=== PATIENT | female | born 1945 | race Caucasian/White ===

== ENCOUNTER 2018-08-19 19:50 | Emergency (ER) | payer MEDICARE, OTHER ==
[2018-08-19] MEDS ORDERED: Ketorolac Tromethamine 30 MG/ML VIAL ONE (21:51)
[2018-08-19] MEDS ORDERED: Morphine 4 MG/ML VIAL ONE ×2 (21:51→22:53)
[2018-08-19] MEDS ORDERED: Ondansetron PF 4 MG/2 ML Vial ONE (23:27)
== END 2018-08-20 00:07 | disposition home or self-care (01) ==
LOC: ERS 19:50
DX: B34.9 Viral infection, unspecified (principal); M25.552 Pain in left hip; F32.9 Major depressive disorder, single episode, unspecified; F17.210 Nicotine dependence, cigarettes, uncomplicated; I10 Essential (primary) hypertension; Z79.82 Long term (current) use of aspirin; Z79.899 Other long term (current) drug therapy; Z86.73 Personal history of transient ischemic attack (TIA), and cerebral infarction without residual deficits
CPT/HCPCS: 96374; 96375; J1885; J2270; J2405

== ENCOUNTER 2019-09-19 17:28 | Observation (INO) | payer MEDICARE ==
[2019-09-19 18:23] LABS: #Basophils 0.1 thou/uL (0.0-0.2); #Lymphocytes 1.8 thou/uL (1.20-3.40); #Monocytes 1.3 thou/uL (0.11-0.59); #Neutrophils 11.4 thou/uL (1.40-6.50); %Basophils 0.6 % (0.0-1.0); %Eosinophils 0.3 % (0.0-10.0); Hemoglobin 15.8 g/dL (12.0-16.0); Mean Corpuscular HGB CONC 34.7 g/dL (32.0-36.0); Mean Corpuscular Hemoglobin 31.1 pg (27.0-31.0); Mean Corpuscular Volume 89.6 fL (78.0-98.0); Mean Platelet Volume 6.3 fL (7.4-10.4); Platelet Count 267 thou/uL (130-400); RBC Distribution Width 11.9 % (11.5-14.5); Red Blood Cell (RBC) Count 5.08 mill/uL (4.20-5.40); White Blood Cell (WBC) Count 14.6 thou/uL (4.8-10.8)
--- NOTE | 2019-09-19 18:42 | ULT ---
RIGHT UPPER QUADRANT ULTRASOUND CLINICAL HISTORY: Right upper quadrant pain. COMPARISON: CT the abdomen and pelvis with contrast dated September 19, 2019 FINDINGS: Liver:Normal echotexture without focal mass. Intrahepatic bile ducts: No intrahepatic or extrahepatic biliary dilation.; Common bile duct: 3.2 mm. Gallbladder: There is a small stone within the gallbladder. No gallbladder wall thickening or pericho lecystic fluid is evident. Matt's sign:None Main portal vein:Patent with hepatopedal flow. Pancreas:Obscured Right kidney: Right kidney measures 10.9 x 4.0 x 5.4 cm. No focal renal lesion or hydronephrosis. Additional findings: None. IMPRESSION: Cholelithiasis without sonographic evidence of acute calculus cholecystitis.
[2019-09-19 18:49] LABS: ALT (SGPT) 10 U/L (8-55); AST (SGOT) 14 U/L (5-34); Albumin 3.8 g/dL (3.4-4.8); Alkaline Phosphatase 88 U/L (40-110); Anion Gap 15 mmol/L (10-20); BUN (Urea Nitrogen) 12 mg/dL (9.8-20.1); Bilirubin, Total 0.6 mg/dL (0.2-1.2); CK (CPK) 52 U/L (29-168); Calc. Creatinine Clearance 0 mL/min (70-130); Calcium 8.6 mg/dL (7.8-10.44); Carbon Dioxide 22 mmol/L (23-31); Chloride 96 mmol/L (98-107); Estimated GFR-MDRD 57; Globulin 3.3 g/dL (2.4-3.5); Glucose 107 mg/dL (83-110); Lipase 29 U/L (8-78); Potassium 3.9 mmol/L (3.5-5.1); Protein, Total 7.1 g/dL (6.0-8.3); Sodium 129 mmol/L (136-145)
[2019-09-19] MEDS ORDERED: Ondansetron PF 4 MG/2 ML Vial ONE (19:18)
--- NOTE | 2019-09-19 19:52 | PDOC.FPRHP ---
- History of Present Illness Chief Complaint: abdominal pain, n/v History of Present Illness: Patient is a 74F with PMHX of HTN, prior TIA, and recent hospitalization for hyponatremia that presented to the ED as a transfer from [place] for abdominal pain. Per patient the abdominal pain began as mid-epigastric 2 days ago. She denies that it began after eating or after a particular activity. She cannot recall exactly what she was doing at the time of onset. She reports that she did feel some indigestion and took Tums which seemed to alleviate some of her pain. She states that at this time she is more bothered by her nausea and vomiting, as she has had this ongoing for the last 2 days and has not been able to tolerate PO intake. She states that since last night she has been dry-heaving. Denies that this has ever happened to her before. Denies previous issues with her gallbladder or a previous diagnosis of pancreatitis. Endorses chills and subjective fever this morning. She does not drink. Denies hematemesis. Denies cp , sob, hematochezia, melena, hematuria. PCP: Dr. Bolaños ED Course: zofran, phenergan, toradol, 1L NS, 150ml/hr NS - Allergies/Adverse Reactions Allergies Allergy/AdvReac Type Severity Reaction Status Date / Time cefepime Allergy Verified 09/19/19 22:47 cephalexin monohydrate Allergy Verified 09/19/19 22:47 [From Keflex] codeine Allergy Verified 09/19/19 22:47 hydrocodone bitartrate Allergy Verified 09/19/19 22:47 [From Vicodin] Sulfa (Sulfonamide Allergy Verified 09/19/19 22:47 Antibiotics) - Home Medications Medication Instructions Recorded Confirmed Type Aspirin 325 mg PO DAILY 09/20/19 09/20/19 History Estradiol [Estrace] 1 mg PO DAILY 09/20/19 09/20/19 History Lisinopril 10 mg PO DAILY 09/20/19 09/20/19 History Metoprolol Tartrate 25 mg PO DAILY 09/20/19 09/20/19 History Mirtazapine [Remeron] 15 mg PO HS 09/20/19 09/20/19 History - History PMHx: HTN, prior TIA with no residual deficits, recent hospitalization for hyponatremia PSHx: partial thyroidectomy, neck sx, back sx, hysterectomy FHx: no family hx of cholecystitis or pancreatitis Social: 1/2ppd x 30 yrs smoking hx, no etoh use, no drug use - Review of Systems General: reports: fever/chills (chills, subjective fever this morning) Eyes: denies: eye pain, vision changes ENT: denies: nasal congestion, rhinorrhea Respiratory: reports: cough (dry, intermittent). denies: shortness of breath Cardiovascular: denies: chest pain, edema Gastrointestinal: reports: nausea, vomiting, abdominal pain. denies: diarrhea, GI bleeding Genitourinary: denies: incontinence, polyuria Skin: denies: rashes, jaundice Musculoskeletal: denies: pain, stiffness Neurological: denies: syncope, seizure Psychological: denies: anxiety, depression - Vital signs BP: [153/80] HR: [71] RR: [13] Tmax: [99F] Pox: [98]% on [RA] Wt: [84.65kg] - Physical Exam Constitutional: awake, alert and oriented, well developed HEENT: normocephalic and atraumatic, EOMI, MMM Neck: supple, FROM Chest: no-tender to palpation, no lesions Heart: RRR, normal S1/S2 Lungs: CTAB, no respiratory distress Abdomen: soft, non-tender, bowel sounds present, other (no RUQ tenderness or ttp of McBurney's point) Musculoskeletal: normal structure, normal tone, ROM grossly normal Neurological: no focal deficit, normal sensation Skin: no rash/lesions, good turgor Heme/Lymphatic: no unusual bruising or bleeding, no purpura Psychiatric: normal mood and affect, good judgment and insight FMR H&P: Results - Labs Result Diagrams: 09/20/19 05:30 09/20/19 05:30 Lab results: WBC 14.6 thou/uL (4.8-10.8) H 09/19/19 18:14 Hgb 15.8 g/dL (12.0-16.0) 09/19/19 18:14 Hct 45.5 % (36.0-47.0) 09/19/19 18:14 MCV 89.6 fL (78.0-98.0) 09/19/19 18:14 Plt Count 267 thou/uL (130-400) 09/19/19 18:14 Neutrophils % 78.0 % (42.0-75.0) H 09/19/19 18:14 Sodium 129 mmol/L (136-145) L 09/19/19 18:14 Potassium 3.9 mmol/L (3.5-5.1) 09/19/19 18:14 Chloride 96 mmol/L (98-107) L 09/19/19 18:14 Carbon Dioxide 22 mmol/L (23-31) L 09/19/19 18:14 BUN 12 mg/dL (9.8-20.1) 09/19/19 18:14 Creatinine 0.96 mg/dL (0.6-1.1) 09/19/19 18:14 Glucose 107 mg/dL (83-110) 09/19/19 18:14 Lactic Acid 1.2 mmol/L (0.5-2.2) 09/19/19 18:14 Calcium 8.6 mg/dL (7.8-10.44) 09/19/19 18:14 Total Bilirubin 0.6 mg/dL (0.2-1.2) 09/19/19 18:14 AST 14 U/L (5-34) 09/19/19 18:14 ALT 10 U/L (8-55) 09/19/19 18:14 Alkaline Phosphatase 88 U/L (40-110) 09/19/19 18:14 Creatine Kinase 52 U/L (29-168) 09/19/19 18:14 Serum Total Protein 7.1 g/dL (6.0-8.3) 09/19/19 18:14 Albumin 3.8 g/dL (3.4-4.8) 09/19/19 18:14 Lipase 29 U/L (8-78) 09/19/19 18:14 - Radiology Interpretation US - abdomen Status: report reviewed by me (Cholelithaisis, no cholecystitis) FMR H&P: A/P - Problem List (1) Cholelithiasis Current Visit: Yes Status: Acute Code(s): K80.20 - CALCULUS OF GALLBLADDER W /O CHOLECYSTITIS W/O OBSTRUCTION (2) Hypertension Current Visit: No Status: Chronic Code(s): I10 - ESSENTIAL (PRIMARY) HYPERTENSION (3) Hyponatremia Current Visit: No Status: Chronic Code(s): E87.1 - HYPO-OSMOLALITY AND HYPONATREMIA (4) Leukocytosis Current Visit: No Status: Acute Code(s): D72.829 - ELEVATED WHITE BLOOD CELL COUNT, UNSPECIFIED (5) Depression Current Visit: Yes Status: Chronic Code(s): F32.9 - MAJOR DEPRESSIVE DISORDER, SINGLE EPISODE, UNSPECIFIED (6) Nausea and vomiting Current Visit: No Status: Resolved Code(s): R11.2 - NAUSEA WITH VOMITING, UNSPECIFIED - Plan Patient is a 74F with PMHX of HTN, prior TIA, and recent hospitalization for hyponatremia that is admitted with intractable nausea and vomiting. #Intractable Nausea and vomiting #Cholelithiasis -unclear etiology -RUQ US demonstrated cholelithiasis without cholecystitis -n/v accompanied by abdominal pain -will get HIDA scan in am to assess functionality of gallbladder -h pylori fecal antigen and FOBT to assess for possible ulcer -protonix BID -IV zofran and IV phenergan -Clear liquid diet #Recent hyponatremia -sodium 129, improved from last hospitalization -NS for IVF and will continue to monitor on am labs #Leukocytosis -WBC 14.6 -likely reactive -vss at this time, will continue to monitor #HTN -continue home meds #Depression -continue home meds DVT ppx:SCD Diet: Clears Dispo: obs for IV hydration and IV medication for intractable n/v; HIDA scan in am Code: Full PCP: Mami FMR H&P: Upper Level - Pertinent history 74 yo F here as a transfer from [place] for intractable n/v and abdominal pain. She states that she has had significant abdominal pain across her upper abdomen that has been associated with n/v for the past week. She denies association with eating. She denies blood in stool or vomit. She complains of chills, however has had no fever at home or documented in the ED. She was admitted to the [facility] about 1 month ago for hyponatremia. Imaging here shows cholelithiasis, without cholecystitis. She was given protonix, Phenergan, Zofran, and toradol with improvement of symptoms, however now she complains of recurrent pain. PMHx HTN Hx of TIA MDD Surgical Hx Hysterectomy Spinal surgery NOS Social Hx 30+ pack year smoking hx No drugs or etoh - Pertinent findings See technology risk intern note for full ROS, PE, vitals, and labs ROS General Complains of chills. Denies fever HEENT denies sore throat or ear pain CV Denies of CP or palpitations Resp Denies SOB or cough GI Complains of abdominal pain and n/v. Denies diarrhea, black or red stools Denies dysuria Neuro denies weakness or numbness. PE General A&O x4 HEENT NCAT CV RRR, no murmur Resp CTA Abd Soft, mild epigastric tenderness. No RUQ tenderness, McBurneys pt negative for tenderness Extremities no edema, equal pedal pulses Neuro no focal deficits - Plan Date/Time: 09/19/191950 I, Jas Ramirez DO, have evaluated this patient and agree with findings/plan as outlined by technology risk intern resident. Pertinent changes/additions are listed here. 1.Intractable n/v -Unclear etiology at this time ddx includes pain associated with gall bladder, gastritis, or ulcer. -HIDA scan in am. Check stool H Pylori antigen -Admit for observation -IVF at maintenance rate -Zofran and Phenergan as needed 2.Hyponatremia -Improved from previous admission. Continue to monitor -Likely due to poor intake 3.Leukocytosis -Likely stress reaction. No fever or tachycardia here. Low concern for ascending infection, however it is in the ddx. Will start abx if symptoms or vitals worsen 4.HTN -Home meds Diet Clears, advance as tolerated Code Full PPx SCD Dispo: pt is currently stable. Would expect 1-2 day hospitalization. Addendum - Attending - Attending Attestation Date/Time: 09/19/19 4080 I personally evaluated the patient and discussed the management with Dr. Howard. I agree with the History, Examination, Assessment and Plan documented above with any addition or exceptions noted below. The patient presents with a 2-3 day history of epigastric abdominal pain and persistent nausea. RUQ ultrasound shows cholelithiasis but no cholecystitis. Will treat nausea with zofran and phenergan. Pt will be NPO. Will get hida scan. Add protonix.
[2019-09-19] MEDS ORDERED: Promethazine HCl 25 MG/ML VIAL ONE (20:09)
[2019-09-19] MEDS ORDERED: Ondansetron ODT 4 MG TAB SL PRN (21:03)
[2019-09-19] MEDS ORDERED: Ondansetron PF 4 MG/2 ML Vial IVP PRN ×2 (21:03→23:00)
[2019-09-19] MEDS ORDERED: D5 1/2 NS w/20 mEq KCL 1,000 ML IV SCH (21:15)
[2019-09-19] MEDS ORDERED: Calcium Carbonate 500 MG ChewTAB PO PRN (21:39)
[2019-09-19] MEDS ORDERED: Promethazine HCl 12.5 MG in Sodium Chloride 0.9% 50 ML IVPB PRN (21:39)
[2019-09-19] MEDS ORDERED: Acetaminophen 325 MG TAB PO PRN (21:39)
[2019-09-19] MEDS: Sodium Chloride 0.9% 1,000 ML IV SCH (22:05)
[2019-09-19] MEDS: Nicotine 14 MG PATCH TD SCH (22:22)
[2019-09-19 22:58] VITALS: BMI 29.0
[2019-09-20] MEDS: Sodium Chloride 0.9% 1,000 ML IV SCH ×3 (05:00→22:34)
[2019-09-20 05:43] LABS: #Basophils 0.1 thou/uL (0.0-0.2); #Eosinphils 0.1 thou/uL (0.0-0.7); #Neutrophils 10.8 thou/uL (1.40-6.50); %Basophils 0.7 % (0.0-1.0); %Eosinophils 0.4 % (0.0-10.0); %Monocytes 7.5 % (0.0-10.0); %Neutrophils 77.4 % (42.0-75.0); Hemoglobin 15.4 g/dL (12.0-16.0); Mean Corpuscular HGB CONC 32.2 g/dL (32.0-36.0); Mean Corpuscular Hemoglobin 28.7 pg (27.0-31.0); Mean Corpuscular Volume 89.2 fL (78.0-98.0); Mean Platelet Volume 6.7 fL (7.4-10.4); Platelet Count 277 thou/uL (130-400); RBC Distribution Width 11.9 % (11.5-14.5); Red Blood Cell (RBC) Count 5.38 mill/uL (4.20-5.40); White Blood Cell (WBC) Count 13.9 thou/uL (4.8-10.8)
--- NOTE | 2019-09-20 06:06 | PDOC.FM ---
- Subjective Subjective: She is having a lot of nausea and vomiting this morning. No abdominal pain currently. - Objective MAR Reviewed: Yes Vital Signs & Weight: Vital Signs (12 hours) Temp Pulse Resp BP BP Pulse Ox 09/20/19 03:12 97.9 F 87 16 148/73 H 97 09/19/19 23:15 98.2 F 77 16 162/66 H 97 09/19/19 21:00 98.3 F 71 18 114/71 114/71 99 Weight Weight 81.65 kg I&O: 09/18/19 09/19/19 09/20/19 06:59 06:59 06:59 Intake Total 1002 Balance 1002 Result Diagrams: 09/20/19 05:30 09/20/19 05:30 Phys Exam - Physical Examination Constitutional: NAD HEENT: moist MMs, oral pharynx no lesions Neck: supple, full ROM Respiratory: clear to auscultation bilateral Cardiovascular: RRR, no significant murmur Gastrointestinal: soft, non-tender, positive bowel sounds Musculoskeletal: no edema, pulses present Neurological: moves all 4 limbs Psychiatric: normal affect Skin: no rash Dx/Plan (1) Cholelithiasis Code(s): K80.20 - CALCULUS OF GALLBLADDER W/O CHOLECYSTITIS W/O OBSTRUCTION Status: Acute (2) Leukocytosis Code(s): D72.829 - ELEVATED WHITE BLOOD CELL COUNT, UNSPECIFIED Status: Acute (3) Hypertension Code(s): I10 - ESSENTIAL (PRIMARY) HYPERTENSION Status: Chronic (4) Hyponatremia Code(s): E87.1 - HYPO-OSMOLALITY AND HYPONATREMIA Status: Chronic (5) Nausea and vomiting Code(s): R11.2 - NAUSEA WITH VOMITING, UNSPECIFIED Status: Resolved (6) Depression Code(s): F32.9 - MAJOR DEPRESSIVE DISORDER, SINGLE EPISODE, UNSPECIFIED Status : Chronic - Plan Plan: Patient is a 74F with PMHX of HTN, prior TIA, and recent hospitalization for hyponatremia that is admitted with intractable nausea and vomiting. #Intractable Nausea and vomiting 2/2 Cholelithiasis -unclear etiology -RUQ US demonstrated cholelithiasis without cholecystitis -n/v accompanied by abdominal pain -will get HIDA scan in am to assess functionality of gallbladder * Ativan for procedure -h pylori fecal antigen and FOBT to assess for possible ulcer -protonix BID -IV zofran and IV phenergan -Clear liquid diet -Toradol for pain #Recent hyponatremia -sodium 130, improved from last hospitalization -NS for IVF and will continue to monitor on am labs #Leukocytosis -WBC 14.6 > 13.9 -likely reactive -vss at this time, will continue to monitor #HTN -continue home meds #Depression -continue home meds DVT ppx:SCD Diet: Clears Dispo: obs for IV hydration and IV medication for intractable n/v; HIDA scan today. Code: Full PCP: Mami Addendum - Attending - Attending Attestation Date/Time: 09/20/19 7502 I personally evaluated the patient and discussed the management with Dr. Ureña. I agree with the History, Examination, Assessment and Plan documented above with any addition or exceptions noted below. The patient has more nausea this morning. HIDA scan is scheduled today. Continue prn meds. Pt is hypertensive and PRN's are being added.
[2019-09-20 06:08] LABS: ALT (SGPT) 10 U/L (8-55); AST (SGOT) 15 U/L (5-34); Alkaline Phosphatase 90 U/L (40-110); Anion Gap 15 mmol/L (10-20); BUN (Urea Nitrogen) 12 mg/dL (9.8-20.1); Bilirubin, Total 0.6 mg/dL (0.2-1.2); Calc. Creatinine Clearance 78 mL/min (70-130); Calcium 8.7 mg/dL (7.8-10.44); Carbon Dioxide 21 mmol/L (23-31); Chloride 98 mmol/L (98-107); Estimated GFR-MDRD 70; Globulin 3.5 g/dL (2.4-3.5); Glucose 98 mg/dL (83-110); Potassium 3.7 mmol/L (3.5-5.1); Protein, Total 7.5 g/dL (6.0-8.3); Sodium 130 mmol/L (136-145)
[2019-09-20] MEDS ORDERED: hydrALAZINE 20 MG/ML VIAL SLOW IVP PRN (07:48)
[2019-09-20] MEDS: Pantoprazole 40 MG VIAL IVP SCH ×2 (08:09→20:44)
[2019-09-20] MEDS ORDERED: Ketorolac Tromethamine 30 MG/ML VIAL IVP PRN (08:54)
[2019-09-20] MEDS ORDERED: Enoxaparin Sodium 40 MG/0.4 ML SYRINGE SC SCH (09:00)
[2019-09-20] MEDS ORDERED: Lorazepam 2 MG/ML VIAL SLOW IVP SCH (09:00)
[2019-09-20] MEDS ORDERED: hydrALAZINE 20 MG/ML VIAL SLOW IVP SCH (10:15)
[2019-09-20] MEDS: Estradiol 1 MG TAB PO SCH (11:22)
[2019-09-20] MEDS: Lisinopril 10 MG TAB PO SCH (11:22)
[2019-09-20] MEDS: Metoprolol Tartrate 25 MG TAB PO SCH (11:22)
[2019-09-20] MEDS: Aspirin 325 MG TAB PO SCH (11:22)
--- NOTE | 2019-09-20 15:07 | NM ---
EXAM: Nuclear medicine hepatobiliary scan: HISTORY: Cholelithiasis with concern for acute cholecystitis. COMPARISON: None. RADIOPHARMACEUTICAL: 4.5 mCi technetium 99m labeled mebrofenin intravenously. FINDINGS: There is normal opacification of the liver with excretion into the gallbladder and into the small bow el by 60 minutes. Following administration of: 1.6 mcg CCK, gallbladder ejection fraction [id number]%. IMPRESSION: Unremarkable nuclear medicine hepatic biliary scan. 49% gallbladder ejection fraction at 30 minutes..
[2019-09-20] MEDS: metroNIDAZOLE 500 MG TAB PO SCH (20:43)
[2019-09-20] MEDS: Clarithromycin 500 MG TAB PO SCH (20:43)
[2019-09-20] MEDS: Nicotine 14 MG PATCH TD SCH (20:47)
[2019-09-20] MEDS ORDERED: Mirtazapine 15 MG TAB PO SCH (21:00)
--- NOTE | 2019-09-21 05:51 | PDOC.FM ---
- Subjective Subjective: She is doing well this morning. Abdominal pain has much improved. Nausea and vomiting has much improved. - Objective MAR Reviewed: Yes Vital Signs & Weight: Vital Signs (12 hours) Temp Pulse Resp BP BP Pulse Ox 09/21/19 05:40 97.5 F L 81 18 150/72 H 98 09/20/19 23:12 97.6 F 76 18 105/56 L 98 09/20/19 20:03 97.9 F 77 15 110/67 93 L Weight Weight 81.65 kg I&O: 09/19/19 09/20/19 09/21/19 06:59 06:59 06:59 Intake Total 2262 1730 Balance 2262 1730 Result Diagrams: 09/21/19 08:18 09/21/19 08:18 Phys Exam - Physical Examination Constitutional: NAD HEENT: PERRLA, moist MMs Neck: supple, full ROM Respiratory: no wheezing, no rales, no rhonchi, clear to auscultation bilateral Cardiovascular: RRR, no significant murmur, no rub Gastrointestinal: soft, non-tender, no distention, positive bowel sounds Musculoskeletal: no edema, pulses present Neurological: non-focal, moves all 4 limbs Psychiatric: normal affect, A&O x 3 Skin: no rash, normal turgor Dx/Plan (1) Weight loss of more than 10% body weight Code(s): R63.4 - ABNORMAL WEIGHT LOSS Status: Acute (2) Nausea and vomiting Code(s): R11.2 - NAUSEA WITH VOMITING, UNSPECIFIED Status: Resolved (3) Leukocytosis Code(s): D72.829 - ELEVATED WHITE BLOOD CELL COUNT, UNSPECIFIED Status: Acute (4) Hyponatremia Code(s): E87.1 - HYPO-OSMOLALITY AND HYPONATREMIA Status: Chronic (5) Hypertension Code(s): I10 - ESSENTIAL (PRIMARY) HYPERTENSION Status: Chronic (6) Depression Code(s): F32.9 - MAJOR DEPRESSIVE DISORDER, SINGLE EPISODE, UNSPECIFIED Status : Chronic (7) Cholelithiasis Code(s): K80.20 - CALCULUS OF GALLBLADDER W/O CHOLECYSTITIS W/O OBSTRUCTION Status: Acute - Plan Plan: Colelithiasis -RUQ US demonstrated cholelithiasis without cholecystitis -HIDA scan unremarkable. Gallbladder EF 49% H Pylori infection Triple therapy initiated - Clarithromycin, Metronidazole, and PPI Will continue treatment for total of 14 days. Will discuss discharge today with outpatient GI consult vs inpatient GI consult. Hyponatremia -sodium 130, improved from last hospitalization -NS for IVF and will continue to monitor on am labs Leukocytosis -WBC 14.6 > 13.9 -likely reactive -vss at this time, will continue to monitor HTN -continue home meds Depression -continue home meds DVT ppx:SCD Diet: Clears, adv as tolerated Dispo: Stable Code: Full PCP: Mami Addendum - Attending - Attending Attestation Date/Time: 09/21/19 9614 I personally evaluated the patient and discussed the management with Dr. Nixon. I agree with the History, Examination, Assessment and Plan documented above with any addition or exceptions noted below. Patient's symptoms had completely resolved upon my evaluation. Her exam was nonfocal with no abd pain or tenderness. I discussed need for GI consultation and she was adamant about that being in the outpatient setting. I emphasized the possibility of cancer and need for an endoscopy. She says she will follow with up them shortly. A referral will be placed on d/c and I advised her to discuss this with her PCP as well.
[2019-09-21 08:13] VITALS: BP 133/80; TEMP 97.6
[2019-09-21 08:44] LABS: #Basophils 0.1 thou/uL (0.0-0.2); #Eosinphils 0.2 thou/uL (0.0-0.7); #Lymphocytes 2.2 thou/uL (1.20-3.40); #Neutrophils 6.3 thou/uL (1.40-6.50); %Basophils 0.6 % (0.0-1.0); %Eosinophils 2.5 % (0.0-10.0); %Lymphocytes 22.4 % (21.0-51.0); %Monocytes 10.6 % (0.0-10.0); %Neutrophils 63.9 % (42.0-75.0); Mean Corpuscular HGB CONC 33.9 g/dL (32.0-36.0); Mean Corpuscular Hemoglobin 30.4 pg (27.0-31.0); Mean Corpuscular Volume 89.7 fL (78.0-98.0); Mean Platelet Volume 6.6 fL (7.4-10.4); Platelet Count 210 thou/uL (130-400); RBC Distribution Width 11.7 % (11.5-14.5); Red Blood Cell (RBC) Count 4.28 mill/uL (4.20-5.40); White Blood Cell (WBC) Count 9.8 thou/uL (4.8-10.8)
[2019-09-21 08:49] LABS: Anion Gap 8 mmol/L (10-20); BUN (Urea Nitrogen) 10 mg/dL (9.8-20.1); Calc. Creatinine Clearance 86 mL/min (70-130); Calcium 7.5 mg/dL (7.8-10.44); Carbon Dioxide 21 mmol/L (23-31); Chloride 102 mmol/L (98-107); Estimated GFR-MDRD 78; Glucose 118 mg/dL (83-110); Potassium 3.3 mmol/L (3.5-5.1); Sodium 128 mmol/L (136-145)
[2019-09-21] MEDS: Estradiol 1 MG TAB PO SCH (09:02)
[2019-09-21] MEDS: Lisinopril 10 MG TAB PO SCH (09:02)
[2019-09-21] MEDS: Metoprolol Tartrate 25 MG TAB PO SCH (09:02)
[2019-09-21] MEDS: Clarithromycin 500 MG TAB PO SCH (09:02)
[2019-09-21] MEDS: Pantoprazole 40 MG VIAL IVP SCH (09:02)
[2019-09-21] MEDS: metroNIDAZOLE 500 MG TAB PO SCH (09:02)
[2019-09-21] MEDS: Sodium Chloride 0.9% 1,000 ML IV SCH (11:22)
[2019-09-21] MEDS: Aspirin 325 MG TAB PO SCH (11:25)
--- NOTE | 2019-09-23 05:54 | DIS ---
DATE OF ADMISSION: 09/19/2019 DATE OF DISCHARGE: 09/21/2019 RESIDENT: Nathalia Nixon MD ADMITTING ATTENDING: Antonia Fam MD DISCHARGE ATTENDING: Tyler Salazar MD CONSULTS: None. PROCEDURES: HIDA scan, which was unremarkable for gallbladder dysfunction and the EF was 49% at 30 minutes. PRIMARY DIAGNOSIS: Helicobacter pylori gastritis. SECONDARY DIAGNOSES: 1. Intractable nausea and vomiting. 2. Cholelithiasis without cholecystitis. 3. Hyponatremia. 4. Leukocytosis. 5. Hypertension. 6. Depression. DISCHARGE MEDICATIONS: 1. Aspirin. 2. Estradiol. 3. Lisinopril. 4. Metoprolol. 5. Mirtazapine. 6. Clarithromycin 500 mg b.i.d. for 13 more days. 7. Metronidazole 500 mg t.i.d. for 13 more days. 8. Zofran as needed. 9. Protonix 40 mg p.o. daily for 30 days until followup with GI. DISCONTINUED MEDICATIONS: None. HISTORY OF PRESENT ILLNESS AND HOSPITAL COURSE: Ms. Edouard is a 74-year-old female with a history of hypertension, who presents for intractable nausea and vomiting. She describes midepigastric pain that began 2 days prior to admission. She does not recall that it is in relation to eating. She denies symptoms like this prior. She is otherwise relatively healthy. Right upper quadrant ultrasound demonstrated cholelithiasis without acute cholecystitis. Nausea and vomiting improved with Zofran. H pylori fecal antigen and FOBT were performed to evaluate for possible ulcer or H pylori infection. The H pylori in the stool culture was positive. The FOBT was also positive. It was recommended that the patient followup with GI closely as outpatient for an upper and lower endoscopy. The patient was started on triple therapy for H pylori. DISPOSITION: Stable. DISCHARGE INSTRUCTIONS: 1. Location: Home. 2. Diet: Regular. 3. Activity: Ad jo-ann. 4. Followup: Follow up with primary care physician within 7 days. Follow up with Gastroenterology within 14 days of discharge. Job ID: [id number]
== END 2019-09-21 12:30 | disposition home or self-care (01) ==
LOC: ERS 17:28 → SURG B 19:01
PROVIDERS: ADMIT Family Medicine; ATTEND Family Medicine
DX: K80.20 Calculus of gallbladder without cholecystitis without obstruction (principal); E87.1 Hypo-osmolality and hyponatremia; I10 Essential (primary) hypertension; F17.210 Nicotine dependence, cigarettes, uncomplicated; F32.9 Major depressive disorder, single episode, unspecified; D72.829 Elevated white blood cell count, unspecified; Z79.82 Long term (current) use of aspirin; Z79.899 Other long term (current) drug therapy; Z86.73 Personal history of transient ischemic attack (TIA), and cerebral infarction without residual deficits; Z88.1 Allergy status to other antibiotic agents; Z88.2 Allergy status to sulfonamides; Z88.5 Allergy status to narcotic agent
CPT/HCPCS: 76705; 78227; 80048; 80053 ×2; 82274; 82550; 83605; 83690; 84484; 85025 ×3; 87040; 87338; 93005; 96361 ×3; 96365; 96375 ×2; 96376 ×2; 99285; A9537; G0378 ×4; 36415; C9113; J0360; J1885; J2060; J2405; J2550